=== PATIENT | male | born 1985 | race Caucasian/White ===

== ENCOUNTER 2021-01-17 09:47 | Day surgery (SDC) | payer MEDICAID, SELFPAY ==
[2021-01-17 10:44] VITALS: BP 125/71; PULSE 86; RESP 18; TEMP 36.5; O2SAT 92; BMI 44.0
[2021-01-17 11:20] LABS: Coronavirus 19 IgG Antibody Positive (Negative); Coronavirus 19 IgM Antibody Negative (Negative)
--- NOTE | 2021-01-17 12:02 | P.PCN_ITS ---
[facility] Procedure Note Procedure Note:: Upper Endoscopy Procedure Report: Esophagogastroduodenoscopy with cold biopsies Endoscopost: Axel Leblanc II, MD Referring Physician: Fahad Warren MD Date of Procedure: January 17, 2021 Equipment: Olympus GIF 180 standard upper endoscope Sedation: MAC sedation Indications: Mr. Jensen is a 35-year-old gentleman with dyspepsia. He reports epigastric abdominal pain and discomfort with nausea and occasional vomiting/regurgitation. He does report some bloating and mild belching. He reports no reflux or dysphagia. He has occasional globus sensation. He also has some mild chronic constipation. This is his first upper endoscopy. Procedure: Prior to the procedure, a history and physical exam was performed, and patient's medications and allergies were reviewed. The risks, benefits and alternatives of the sedation and procedure were discussed with the patient. All questions were answered and informed consent was obtained. The patient was brought to the procedure room. Patient identification and proposed procedure were verified by the physician and the nurse. The patient was placed in a left lateral decubitus position and the scope was passed under direct vision. Throughout the procedure, the patient's blood pressure, pulse, and oxygen saturations were monitored continuously. The upper GI endoscopy was accomplished without difficulty. The patient tolerated the procedure well. Findings: The scope was passed directly into the upper esophagus and advanced to the third portion of the duodenum. The post bulbar duodenum and duodenal bulb were normal with normal mucosa and conniventes. The scope was withdrawn through a normal duodenal bulb and pylorus into the stomach. There was linear reactive gastropathy of the antrum of the stomach. There was a moderate amount of green liquid that was very dark and somewhat bile colored but also darker (the patient did have coffee this morning). There is also some chronic gastritis. Upon retroflexion there was no significant hiatal hernia. 2 biopsies were taken in the antrum and along the lesser curvature for histology to rule out gastritis and/or H pylori. The scope was then withdrawn into the esophagus. There was a serrated Z-line with a single tongue of salmon-colored mucosa that was biopsied to rule out short segment Rowley's esophagus. There was no evidence of reflux esophagitis or Schatzki's ring. There did appear to be very faint grade 0?1 esophageal varices. The remainder of the esophageal mucosa was normal. Impression: 1. Nonerosive GERD with mild esophageal dysmotility 2. Linear reactive gastropathy (prepyloric antrum) with some chronic gastritis (type A gastritis of the body/fundus)?rule out H. pylori Plan: I will follow-up the biopsies to rule out H. pylori. 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 We will discuss diet and treatment options.
[2021-01-17 12:04] VITALS: BP 149/99; PULSE 98; RESP 20; TEMP 36.5; O2SAT 96
[2021-01-17 12:14] VITALS: BP 147/80; PULSE 79; RESP 20; O2SAT 96
[2021-01-17 12:24] VITALS: BP 147/84; PULSE 77; RESP 20; O2SAT 98
[2021-01-17 12:34] VITALS: BP 159/95; PULSE 75; RESP 20; O2SAT 98
[2021-01-17 12:56] VITALS: BP 135/81; PULSE 64; RESP 20; O2SAT 97
--- NOTE | 2021-01-17 14:52 | SUR.PHASEII ---
1255- @ . No new orders received. Pt up to bathroom. Voided without difficulty. Very eager to go home. Stable.
--- NOTE | 2021-01-17 15:58 | HMH.ANESCL ---
[facility] Anesthesia Checklist - Patient Identification Patient Identification: Arm Band, Verbal (Name & ) - Structural Data Admitted From: Home Planned Operative Procedure/s: egd Consent for Planned Operative Procedure(s) Verified: Yes Verified Documents: Surgical Consent - Anesthesia Plan Anesthesia Risk discussed: Yes Anesthesia Plan: Verified ASA Class: III Anesthesia Type: General [facility] History Medical History: Denies:: Cancer, Diabetes Mellitus Type 1, Diabetes Mellitus Type 2, Internal Pacemaker, MRSA, Seizures *Have you ever received a pneumonia vaccine?: No *Have you received a flu vaccine this season?: Yes Anesthesia experience/problems:: none Other Surgeries: Yes: No Previous Surgery. No: Pacemaker Amputation: No - *Social History Last grade of school completed: 7th or 8th Smoking Status: Current every day smoker Tobacco Type: cigarettes # Packs/Day (cigarettes): 1 Alcohol Intake: former Substance Use Type: marijuana *Occupational Status:: unemployed Housing: assisted living facility *Travel in the last 8 weeks: None Family Hx:: Unable to obtain
== END 2021-01-17 12:56 | disposition home or self-care (01) ==
LOC: OUTP 09:52
PROVIDERS: PCP Emergency Medicine; Visit Provider Internal Medicine Gastroenterology
PROC: 0DJ08ZZ Inspection of Upper Intestinal Tract, Via Natural or Artificial Opening Endoscopic (ICD-10-PCS; CPT 43235; principal; 2021-01-17 11:30)
DX: K21.9 Gastro-esophageal reflux disease without esophagitis; K22.4 Dyskinesia of esophagus; K31.9 Disease of stomach and duodenum, unspecified; K29.60 Other gastritis without bleeding; Z72.0 Tobacco use; F12.90 Cannabis use, unspecified, uncomplicated; Z79.899 Other long term (current) drug therapy
CPT/HCPCS: 43239; 36415; 86328

== ENCOUNTER 2021-06-10 20:39 | Emergency (ER) | payer MEDICAID, SELFPAY ==
[2021-06-10 20:19] VITALS: BP 126/73; PULSE 90; RESP 18; TEMP 36.9; O2SAT 99; BMI 35.2
--- NOTE | 2021-06-10 20:32 | CT_ITS ---
PROCEDURE INFORMATION: Exam: CT Thoracic Spine Without Contrast Exam date and time: 06/10/2021 8:32 PM Age: 36 years old Clinical indication: Pain in thoracic spine TECHNIQUE: Imaging protocol: Computed tomography images of the thoracic spine without contrast. Radiation optimization: All CT scans at this facility use at least one of these dose optimization techniques: automated exposure control; mA and/or kV adjustment per patient size (includes targeted exams where dose is matched to clinical indication); or iterative reconstruction. COMPARISON: No relevant prior studies available. FINDINGS: Vertebrae: Subtle superior endplate irregularity at T3. Mild degenerative changes. Soft tissues: Unremarkable. IMPRESSION: Subtle superior endplate irregularity at T3 without associated soft tissue abnormality which may be chronic however correlation with point tenderness is recommended.
--- NOTE | 2021-06-10 20:32 | CT_ITS ---
PROCEDURE INFORMATION: Exam: CT Lumbar Spine Without Contrast Exam date and time: 06/10/2021 8:32 PM Age: 36 years old Clinical indication: Low back pain TECHNIQUE: Imaging protocol: Computed tomography images of the lumbar spine without contrast. Radiation optimization: All CT scans at this facility use at least one of these dose optimization techniques: automated exposure control; mA and/or kV adjustment per patient size (includes targeted exams where dose is matched to clinical indication); or iterative reconstruction. COMPARISON: No relevant prior studies available. FINDINGS: Vertebrae: L4 demonstrates heterogeneous marrow and mild height loss with endplate measuring 22 mm in height compared to 29 mm at the adjacent level. Discs/Spinal canal/Neural foramina: Spondylosis with large disc osteophyte complex narrowing the spinal canal at L5-S1. Soft tissues: Unremarkable. IMPRESSION: 1. L4 demonstrates heterogeneous marrow and mild height loss with endplate measuring 22 mm in height compared to 29 mm at the adjacent level. Findings appear chronic however correlation with point tenderness is recommended. Superimposed infection cannot be excluded. 2. Spondylosis with large disc osteophyte complex narrowing the spinal canal at L5-S1.
--- NOTE | 2021-06-10 20:33 | PC.NURSE ---
pt stated he had taken a drink of vodka so you might find alcohol in my system
--- NOTE | 2021-06-10 20:34 | CT_ITS ---
PROCEDURE INFORMATION: Exam: CT Cervical Spine Without Contrast Exam date and time: 06/10/2021 8:34 PM Age: 36 years old Clinical indication: Neck pain TECHNIQUE: Imaging protocol: Computed tomography images of the cervical spine without contrast. Radiation optimization: All CT scans at this facility use at least one of these dose optimization techniques: automated exposure control; mA and/or kV adjustment per patient size (includes targeted exams where dose is matched to clinical indication); or iterative reconstruction. COMPARISON: CT THORACIC SPINE WO CON 06/10/2021 9:08 PM FINDINGS: Bones/joints: Degenerative changes of the spine. Subtle superior endplate irregularity at T3. No cervical fracture. Sinuses: Mild mucosal thickening of the paranasal sinuses. Auditory system: Debris within bilateral external auditory canals. Dental: Artifact associated with dental fillings. Lungs: Lung apices are normal. Soft tissues: No soft tissue swelling. IMPRESSION: No acute cervical abnormality.
--- NOTE | 2021-06-10 20:36 | HMH.EDBACK ---
ED Disposition Clinical Impression: Lumbar radiculopathy Disposition: Home, Self-Care Condition on Discharge: Good Instructions: DI for Back Pain With Sciatica Additional Instructions: see pcp for follow up - Critical Care Critical Care Time: No Attestation: On , the high probability of a clinically significant, sudden or life threatening deterioration of the following system(s) required my full and direct attention, intervention and personal management. The time I documented below is in addition to time spent performing reported procedures but includes the following listed in this critical care notation. Medical Decision Making - Medical Records Medical records reviewed: Yes: I reviewed the patient's medical records. - [place] Inquiry Pt receiving controlled substance: No Vital Signs: 06/10/21 20:19 Temperature 98.4 F Temperature Source Oral Pulse Rate [Left Radial] 90 Respiratory Rate 18 Blood Pressure [Right Arm] 126/73 Blood Pressure Mean [Right Arm] 90 Blood Pressure Source [Right Arm] Automatic Cuff Blood Pressure Position [Right Arm] Supine 02 Sat by Pulse Oximetry 99 Oxygen Delivery Method Room Air - Lab Data Lab results reviewed: Yes: I reviewed the patient's lab results. Lab Results 06/10/21 20:30: WBC 9.2, RBC 5.74, Hgb 16.4, Hct 47.6, MCV 82.9, MCH 28.5, MCHC 34.4, RDW 13.8, Plt Count 173, MPV 8.2, Neut % (Auto) 50.7, Lymph % (Auto) 40.6, [place] % (Auto) 4.9, Eos % (Auto) 2.0, Baso % (Auto) 1.9, Neut # (Auto) 4.6, Lymph # (Auto) 3.7, [place] # (Auto) 0.5, Eos # (Auto) 0.2, Baso # (Auto) 0.2, ESR 1 06/10/21 20:30: Sodium 140, Potassium 3.9, Chloride 106, Carbon Dioxide 25, Anion Gap 12.9, BUN 5 L, Creatinine 0.70, Estimated Creat Clear 243, Estimated GFR 128, Est GFR ( Amer) 154, Glucose 88, Calcium 8.9, C-Reactive Protein 6.6 H, Procalcitonin 0.063 06/10/21 20:30: Plasma/Serum Alcohol < 10 06/10/21 20:54: Urine Color Yellow, Urine Appearance Clear, Urine pH 7.5, Ur Specific [place] 1.010, Urine Protein Negative, Urine Glucose (UA) Negative, Urine Ketones Negative, Urine Blood Negative, Urine Nitrate Negative, Urine Bilirubin Negative, Urine Urobilinogen 0.2, Ur Leukocyte Esterase Negative, Urine RBC None, Urine WBC Occasional, Ur Squamous Epith Cells Occasional, Urine Bacteria Trace 06/10/21 20:54: Urine Opiates Screen Negative, Urine Methadone Screen Negative, Ur Barbituates Screen Negative, Ur Phencyclidine Scrn Negative, Ur Amphetamines Screen Negative, U Benzodiazepines Scrn Negative, Urine Cocaine Screen Negative, U Marijuana (THC) Screen Positive H Result diagrams: 06/10/21 20:30 06/10/21 20:30 Orders (Tests/Meds): ED MEDICATIONS Generic Name Dose Route Start Last Admin Trade Name Freq PRN Reason Stop Dose Admin Sodium Chloride 1,000 mls @ 999 mls/hr 06/10/21 20:45 06/10/21 20:48 Sod Chlor 0.9% 1000ml Bag IV 06/10/21 21:45 999 mls/hr .Q1H1M YOBANY Administration Discontinued Medications Generic Name Dose Route Start Last Admin Trade Name Freq PRN Reason Stop Dose Admin Ketorolac Tromethamine 30 mg 06/10/21 20:35 06/10/21 20:47 Ketorolac 30mg/Ml Vial IV 06/10/21 20:36 30 mg ONCE ONE Administration - CT Data CT Scan: C-Spine, T-Spine, L-Spine Time Received: 22:[address] Reviewed: Yes: I have viewed the radiologist's interpretation Preliminary Findings: No Fracture Seen Medical Decision Narrative: acute excerbation of back pain Back Pain HPI - General Chief Complaint: Back Pain/Injury Stated Complaint: weak knees Time Seen by Provider: 06/10/21 20:36 Mode of Arrival: EMS Source of Information: Patient, EMS, Medical Record Limitations: No Limitations Description of Symptoms (Recalled from ER Triage Doc. by RN): Pt reports walking down the sidewalk and having a sudden pain in his lower back. Pt says he walked about 20 more steps and i just had to lay down. Pt denies injury prior to event. He does report chronic back pain. He denies numbne
[2021-06-10 20:38] LABS: Basophils # 0.2 K/mm3 (0-0.2); Basophils % 1.9 % (0.1-2.0); Eosinophils # 0.2 K/mm3 (0.0-0.4); Hematocrit 47.6 % (42.0-52.0); Hemoglobin 16.4 g/dL (14.1-18.0); Lymphocytes # 3.7 K/mm3 (0.7-4.5); Lymphocytes % 40.6 % (10-50); Mean Corpuscular HGB Conc 34.4 g/dL (31.8-35.4); Mean Corpuscular Hemoglobin 28.5 pg (27.0-31.2); Mean Corpuscular Volume 82.9 fl (80-94); Mean Platelet Volume 8.2 fl (7.4-10.4); Monocytes # 0.5 K/mm3 (0.1-1.0); Monocytes % 4.9 % (1.7-9.3); Neutrophils # 4.6 K/mm3 (1.8-7.8); Neutrophils % 50.7 % (37.0-80.0); Platelet Count 173 K/mm3 (142-424); Red Blood Count 5.74 M/mm3 (4.60-6.20); Red Cell Distribution Width 13.8 % (11.5-17.5); White Blood Count 9.2 K/mm3 (4.8-10.8)
[2021-06-10 20:46] LABS: Anion Gap 12.9 mEq/L (5-15); Blood Urea Nitrogen 5 mg/dl (9-20); Calcium 8.9 mg/dl (8.4-10.2); Carbon Dioxide 25 mmol/L (22.0-30.0); Chloride 106 mmol/L (98-107); Creatinine Clearance Estimated 243 mL/min (50-200); Estimated Glomerular Filt Rate 128 ml/min (>60); GFR (African American) 154 ML/MIN (>60); Glucose 88 mg/dl (74-100); Potassium 3.9 mmoL/L (3.5-5.1); Sodium 140 mmol/L (136-145)
[2021-06-10 20:50] LABS: Ethyl Alcohol < 10 mg/dl (0-10)
[2021-06-10 20:51] LABS: C-Reactive Protein 6.6 mg/L (0-4)
--- NOTE | 2021-06-10 20:58 | PC.NURSE ---
Pt ambulated independently to bathroom and back.
[2021-06-10 21:02] LABS: Microscopic, Urine URINE MICROSCOPIC (MICROSCOPIC)
[2021-06-10 21:04] LABS: Procalcitonin 0.063 ng/mL (0.0-2.0)
[2021-06-10 21:08] LABS: Appearance,Urine CLEAR (Clear); Bilirubin,Urine Negative (Negative); Blood, Urine Negative (Negative); Color,Urine YELLOW (Yellow); Glucose,Urine (UA) Negative (Negative); Ketones,Urine Negative (Negative); Leukocyte Esterase,Urine Negative (Negative); Nitrate,Urine Negative (Negative); PH,Urine 7.5 (5.0-8.5); Protein,Urine Negative (Negative); Urobilinogen,Urine 0.2 EU/dl (0.2)
[2021-06-10 21:19] LABS: Barbiturates Screen,Urine Negative ng/ml (<200); Benzodiazepines Screen,Urine Negative ng/ml (<200)
[2021-06-10 21:20] LABS: Amphetamine/Metha Screen,Urine Negative ng/ml (<1000); Cannabinoid Screen,Urine Positive ng/ml (<50)
[2021-06-10 21:21] LABS: Cocaine Screen,Urine Negative ng/ml (<300)
[2021-06-10 21:22] LABS: Methadone Screen,Urine Negative ng/ml (<300)
[2021-06-10 21:23] LABS: Opiate Screen,Urine Negative ng/ml (<300); Phencyclidine Screen,Urine Negative ng/ml (<25)
[2021-06-10 21:35] LABS: Erythrocyte Sedimentation Rate 1 mm/hr (0-15)
[2021-06-10 21:41] LABS: Bacteria,Urine Trace /lpf; Squamous Epithelial Cell,Urine Occasional #/hpf (0-5); WBC,Urine Occasional #/hpf (0-3)
[2021-06-10 22:43] VITALS: BP 124/78; PULSE 84; RESP 16; TEMP 36.8; O2SAT 98
== END 2021-06-10 22:53 | disposition home or self-care (01) ==
PROVIDERS: Emergency Provider Emergency Medicine; PCP Emergency Medicine
DX: M54.16 Radiculopathy, lumbar region (principal); F17.210 Nicotine dependence, cigarettes, uncomplicated
CPT/HCPCS: 72125; 72128; 72131; 80048; 80305; 81001; 84145; 85025; 85651; 86140; 96365; 96375; 99283

== ENCOUNTER 2021-08-10 18:34 | Emergency (ER) | payer MEDICAID, SELFPAY ==
[2021-08-10 18:35] VITALS: BP 100/62; PULSE 65; RESP 18; TEMP 36.9; O2SAT 97; BMI 42.0
[2021-08-10 19:21] VITALS: BMI 42.0
--- NOTE | 2021-08-10 19:23 | CT_ITS ---
PROCEDURE INFORMATION: Exam: CT Abdomen And Pelvis Without And With Contrast Exam date and time: 08/10/2021 7:23 PM Age: 36 years old Clinical indication: Abdominal pain; Localized; Right lower quadrant (rlq); Additional info: Rlq pain TECHNIQUE: Imaging protocol: Computed tomography of the abdomen and pelvis without and with contrast. Radiation optimization: All CT scans at this facility use at least one of these dose optimization techniques: automated exposure control; mA and/or kV adjustment per patient size (includes targeted exams where dose is matched to clinical indication); or iterative reconstruction. Contrast material: ISOVUE 370; Contrast volume: 75 ml; Contrast route: INTRAVENOUS (IV); COMPARISON: CT LUMBAR SPINE WO CON 06/10/2021 9:11 PM FINDINGS: Lungs: No mass/infiltrate at either lung base. No pleural effusion. 6 mm calcified granuloma subpleural position left lower lobe. Liver: Hepatomegaly, normal attenuation. No intrahepatic biliary dilitation. Gallbladder and bile ducts: 2.5 mm peripherally calcified gallstone present within the gallbladder. The gallbladder wall does not appear thickened. No evidence of extrahepatic biliary dilatation. Pancreas: Normal. No ductal dilation. Spleen: Normal. No splenomegaly. Adrenal glands: Normal. No mass. Kidneys and ureters: Normal. No hydronephrosis. Stomach and bowel: Unremarkable. No obstruction. No mucosal thickening. Small bowel mesentery is normal. Appendix: Unremarkable. Intraperitoneal space: Unremarkable. No free air. No significant fluid collection. Vasculature: Unremarkable. No abdominal aortic aneurysm. Lymph nodes: Unremarkable. No enlarged lymph nodes. Urinary bladder: Unremarkable as visualized. Reproductive: Unremarkable as visualized. Bones/joints: Age-indeterminate superior endplate compression deformity of L4. There are degenerative changes noted within the lower lumbar spine. Soft tissues: Unremarkable. IMPRESSION: 1. Cholelithiasis. 2. Hepatomegaly. 3. Age-indeterminate superior endplate compression deformity of L4. 4. No evidence of acute process.
[2021-08-10 19:27] LABS: Microscopic, Urine URINE MICROSCOPIC (MICROSCOPIC)
[2021-08-10 19:32] LABS: Basophils # 0.1 K/mm3 (0-0.2); Basophils % 0.9 % (0.1-2.0); Eosinophils # 0.2 K/mm3 (0.0-0.4); Eosinophils % 2.5 % (0.1-12.0); Hematocrit 51.1 % (42.0-52.0); Hemoglobin 17.3 g/dL (14.1-18.0); Lymphocytes # 4.2 K/mm3 (0.7-4.5); Lymphocytes % 44.7 % (10-50); Mean Corpuscular HGB Conc 33.9 g/dL (31.8-35.4); Mean Corpuscular Hemoglobin 29.8 pg (27.0-31.2); Monocytes # 0.4 K/mm3 (0.1-1.0); Monocytes % 4.5 % (1.7-9.3); Neutrophils # 4.4 K/mm3 (1.8-7.8); Neutrophils % 47.4 % (37.0-80.0); Platelet Count 181 K/mm3 (142-424); Red Blood Count 5.81 M/mm3 (4.60-6.20); Red Cell Distribution Width 12.8 % (11.5-17.5); White Blood Count 9.4 K/mm3 (4.8-10.8)
[2021-08-10 19:36] LABS: Chloride 107 mmol/L (98-107); Sodium 140 mmol/L (136-145)
[2021-08-10 19:38] LABS: Blood Urea Nitrogen 6 mg/dl (9-20); Creatinine Clearance Estimated 160 mL/min (50-200); Estimated Glomerular Filt Rate 128 ml/min (>60); GFR (African American) 154 ML/MIN (>60)
[2021-08-10 19:39] LABS: Alanine Aminotransferase 31 U/L (12-78); Albumin Level 3.9 g/dl (3.5-5.0); Albumin/Globulin Ratio 1.2 (1.1-1.8); Alkaline Phosphatase 89 U/L (38-126); Appearance,Urine SL CLOUDY (Clear); Aspartate Amino Transferase 32 U/L (17-59); Bilirubin,Total 0.1 mg/dl (0.2-1.3); Bilirubin,Urine Negative (Negative); Blood, Urine Negative (Negative); Calcium 8.8 mg/dl (8.4-10.2); Carbon Dioxide 24 mmol/L (22.0-30.0); Color,Urine YELLOW (Yellow); Globulin 3.2 g/dL (1.3-3.2); Glucose 144 mg/dl (74-100); Glucose,Urine (UA) Negative (Negative); Ketones,Urine Negative (Negative); Leukocyte Esterase,Urine Negative (Negative); Nitrate,Urine Negative (Negative); Protein,Urine Negative (Negative); Specific Gravity, Urine 1.015 (1.005-1.030); Total Protein,Serum 7.1 g/dl (6.3-8.2); Urobilinogen,Urine 0.2 EU/dl (0.2)
[2021-08-10 19:48] LABS: RBC,Urine Occasional #/hpf (0-3); WBC,Urine Occasional #/hpf (0-3)
--- NOTE | 2021-08-10 21:26 | HMH.EDGENADL ---
ED Disposition Clinical Impression: Abdominal pain Qualifiers: Abdominal location: unspecified location Qualified Code(s): R10.9 - Unspecified abdominal pain Otalgia Qualifiers: Laterality: left Qualified Code(s): H92.02 - Otalgia, left ear Disposition: Home, Self-Care Condition on Discharge: Good Instructions: DI for Abdominal Pain-Adult Additional Instructions: Additional instructions for ABDOMINAL PAIN: See your physician as soon as possible for further evaluation. Return immediately if worsening abdominal pain, vomiting, shortness of breath, fever, vomiting of blood or abdominal distention. Referrals: Fahad Warren MD [Primary Care Provider] - - Critical Care Critical Care Time: No Attestation: On 08/10/21, the high probability of a clinically significant, sudden or life threatening deterioration of the following system(s) required my full and direct attention, intervention and personal management. The time I documented below is in addition to time spent performing reported procedures but includes the following listed in this critical care notation. Medical Decision Making - [place] Inquiry Pt receiving controlled substance: No Vital Signs: 08/10/21 18:35 Temperature 98.4 F Temperature Source Oral Pulse Rate [Right] 65 Respiratory Rate 18 Blood Pressure [Right Arm] 100/62 L Blood Pressure Mean [Right Arm] 74 02 Sat by Pulse Oximetry 97 - Lab Data Lab Results 08/10/21 19:15: Urine Color Yellow, Urine Appearance Sl cloudy, Urine pH 6.0, Ur Specific [place] 1.015, Urine Protein Negative, Urine Glucose (UA) Negative, Urine Ketones Negative, Urine Blood Negative, Urine Nitrate Negative, Urine Bilirubin Negative, Urine Urobilinogen 0.2, Ur Leukocyte Esterase Negative, Urine RBC Occasional, Urine WBC Occasional, Ur Squamous Epith Cells None, Urine Bacteria None 08/10/21 19:15: WBC 9.4, RBC 5.81, Hgb 17.3, Hct 51.1, MCV 88.0, MCH 29.8, MCHC 33.9, RDW 12.8, Plt Count 181, MPV 8.0, Neut % (Auto) 47.4, Lymph % (Auto) 44.7, [place] % (Auto) 4.5, Eos % (Auto) 2.5, Baso % (Auto) 0.9, Neut # (Auto) 4.4, Lymph # (Auto) 4.2, [place] # (Auto) 0.4, Eos # (Auto) 0.2, Baso # (Auto) 0.1 08/10/21 19:15: Sodium 140, Potassium 4.0, Chloride 107, Carbon Dioxide 24, Anion Gap 13.0, BUN 6 L, Creatinine 0.70, Estimated Creat Clear 160, Estimated GFR 128, Est GFR ( Amer) 154, Glucose 144 H, Calcium 8.8, Total Bilirubin 0.1 L, AST 32, ALT 31, Alkaline Phosphatase 89, Total Protein 7.1, Albumin 3.9, Globulin 3.2, Albumin/Globulin Ratio 1.2 Result diagrams: 08/10/21 19:15 08/10/21 19:15 Orders (Tests/Meds): ED MEDICATIONS Generic Name Dose Route Start Last Admin Trade Name Freq PRN Reason Stop Dose Admin Sodium Chloride 1,000 mls @ 999 mls/hr 08/10/21 19:30 08/10/21 19:30 Sod Chlor 0.9% 1000ml Bag IV 08/10/21 20:30 999 mls/hr .Q1H1M YOBANY Administration Discontinued Medications Generic Name Dose Route Start Last Admin Trade Name Freq PRN Reason Stop Dose Admin Iopamidol 75 ml 08/10/21 20:41 08/10/21 20:42 Iopamidol-370 (76%);100ml Bottle IV 08/10/21 20:42 75 ml ONCE ONE Administration Ketorolac Tromethamine 30 mg 08/10/21 19:22 08/10/21 19:31 Ketorolac 30mg/Ml Vial IV 08/10/21 19:23 30 mg ONCE ONE Administration Ondansetron HCl 4 mg 08/10/21 19:22 08/10/21 19:31 Ondansetron 4mg/2ml Vial IV 08/10/21 19:23 4 mg ONCE ONE Administration Sodium Chloride 10 ml 08/10/21 20:41 08/10/21 20:42 Sodium Chloride 0.9% 10ml Syr (Rad Only) IV 08/10/21 20:42 10 ml ONCE ONE Administration - CT Data CT Scan: Abdomen, Pelvis Time Received: 21:[address] Reviewed: Yes: I have viewed the radiologist's interpretation Findings Narrative: PROCEDURE INFORMATION: Exam: CT Abdomen And Pelvis Without And With Contrast Exam date and time: 08/10/2021 7:23 PM Age: 36 years old Clinical indication: Abdominal pain; Localized; Right lower quadrant (rlq); Additional info
[2021-08-10 21:53] VITALS: BP 110/72; PULSE 65; RESP 18; TEMP 36.9; O2SAT 97
== END 2021-08-10 21:57 | disposition home or self-care (01) ==
PROVIDERS: Emergency Medicine; Emergency Provider Emergency Medicine; PCP Emergency Medicine
DX: R10.31 Right lower quadrant pain (principal); H92.02 Otalgia, left ear; F17.210 Nicotine dependence, cigarettes, uncomplicated
CPT/HCPCS: 74178; 80053; 81001; 85025; 96365; 96375; 99283; J2405; Q9967

== ENCOUNTER → 2021-12-23 10:10 | Outpatient (CLI) | payer MEDICAID, SELFPAY ==
--- NOTE | 2021-12-23 10:13 | MR_ITS ---
FINAL REPORT CLINICAL HISTORY: BACK PAIN, OLD INJUR 10 YEARS AGO FINDINGS: Multiplanar MR imaging of the lumbar spine was performed without contrast. On the sagittal T2-weighted images, disc degeneration is seen from L3-4 through L5-S1. There are endplate changes at L5-S1. There is a moderate, chronic L4 compression fracture with several Schmorl's nodes. There is no evidence of acute fracture. The vertebral alignment is normal. The conus has an unremarkable appearance. L1-2: There is no significant canal stenosis or neural foraminal narrowing. L2-3: There is no significant canal stenosis or neural foraminal narrowing. L3-4: An annular bulge is present. There is a small central disc protrusion with mild left neural foraminal narrowing. L4-5: An annular bulge is present with moderate bilateral neural foraminal narrowing. L5-S1: An annular bulge is present. Facet arthropathy and osteophytes are present. There is a central inferiorly extruded disc which indents the thecal sac. There is bilateral S1 nerve root compression and severe bilateral neural foraminal narrowing. There is mild central canal stenosis with an AP diameter of the thecal sac of 8 mm. IMPRESSION: Central inferiorly extruded disc at L5-S1 with bilateral S1 nerve root compression, severe bilateral neural foraminal narrowing and mild central canal stenosis. Multilevel degenerative disc disease and spondylosis. Reviewed, Interpreted and Dictated by Souleymane Bell III, MD Transcribed by Demetrice Ryan Authenticated by Souleymane Bell III, MD on 12/23/2021 01:42:21 PM [facility]
== END ==
PROVIDERS: PCP Emergency Medicine; Visit Provider Emergency Medicine
DX: M54.50 Low back pain, unspecified (principal)
CPT/HCPCS: 72148; 76376

== ENCOUNTER 2022-05-30 10:38 | Emergency (ER) | payer MEDICAID, SELFPAY ==
[2022-05-30 10:39] VITALS: BP 127/74; PULSE 77; RESP 16; TEMP 37.2; O2SAT 97; BMI 28.3
--- NOTE | 2022-05-30 10:43 | PC.NURSE ---
MARIANN JARQUIN and AZUL Martinez at
--- NOTE | 2022-05-30 10:49 | HMH.EDGENADL ---
ED Disposition Clinical Impression: Rectal pain Disposition: Home, Self-Care Condition on Discharge: Good Additional Instructions: Use suppositories as needed for discomfort and utilize warm soaks as well. Follow up with your family physician as needed. Referrals: Fahad Warren MD [Primary Care Provider] - Time of Disposition: 10:55 - Critical Care Critical Care Time: No Attestation: On , the high probability of a clinically significant, sudden or life threatening deterioration of the following system(s) required my full and direct attention, intervention and personal management. The time I documented below is in addition to time spent performing reported procedures but includes the following listed in this critical care notation. Medical Decision Making - Medical Records Medical records reviewed: Yes: I reviewed the patient's medical records. - [place] Inquiry Pt receiving controlled substance: No - Lab Data Lab results reviewed: Yes: I reviewed the patient's lab results. Orders (Tests/Meds): ED MEDICATIONS Discontinued Medications Generic Name Dose Route Start Last Admin Trade Name Freq PRN Reason Stop Dose Admin Hydrocortisone Acetate 30 mg 05/30/22 10:46 Hydrocortisone 30mg Suppository RC 05/30/22 10:47 ONCE ONE ORDERS Category Date Time Status Occult Blood,Stool Stat Lab 05/30/22 10:45 Received General Adult HPI - General Time Seen by Provider: 05/30/22 10:55 Mode of Arrival: EMS Source of Information: Patient Limitations: No Limitations - History of Present Illness HPI narrative: 37 yo/M, denies any history of rectal bleeding, pain, abscess, trauma or other issues, presents with 1 day rectal pain after large bowel movement. no known large hemorrhoids, states had pain with BM x2, and small amount of bright red blood when wiping on second episode. Reports sharp, stinging pain now while at rest. Denies diarrhea, abdominal pain, nausea, vomiting, any bleeding disorders or other relevant issues. No treatments prior to this visit. - Related Data Home Medications Medication Instructions Recorded Confirmed Acetylcysteine [Nac] 600 mg PO BID 01/09/21 06/10/21 Cholecalciferol (Vitamin D3) 50,000 unit PO WEEKLY 01/09/21 06/10/21 [Vitamin D3 50,000 unit Cap] Duloxetine HCl 60 mg PO DAILY 01/09/21 06/10/21 Famotidine [Pepcid] 40 mg PO BID 01/09/21 06/10/21 Levothyroxine Sodium 25 mcg PO DAILY 01/09/21 06/10/21 [Levothyroxine] Loratadine [Claritin] 10 mg PO DAILY 01/09/21 06/10/21 Loxapine [Adasuve] 10 mg IH DAILY 01/09/21 06/10/21 Lubiprostone [Amitiza] 24 mcg PO DAILY 01/09/21 06/10/21 Melatonin 3 mg PO HS 01/09/21 06/10/21 Metoprolol Succinate [Metoprolol 25 mg PO BID 01/09/21 06/10/21 Succinate 25mg Tablet*] Multivitamin [Multi-Vitamin Plain] 1 each PO DAILY 01/09/21 06/10/21 Omeprazole [Omeprazole 20mg 20 mg PO BID 01/09/21 06/10/21 Capsule] Pravastatin Sodium [Pravachol 40mg 20 mg PO HS 01/09/21 06/10/21 Tablet] hydrOXYzine pamoate [Vistaril 25mg 25 mg PO Q8H PRN 01/09/21 06/10/21 capsule] Docusate Sodium 100 mg PO DAILY 06/10/21 06/10/21 OLANZapine [Zyprexa] 20 mg PO DAILY 06/10/21 06/10/21 haloperidoL [Haldol 5mg tablet] 5 mg PO BID 06/10/21 06/10/21 Previous Rx's Medication Instructions Recorded lorazepam 1 mg tablet 1 mg PO TID #90 tab 05/27/22 Hydrocortisone [Anusol-Hc] 30 gm TP BID #1 gm 05/30/22 Allergies Allergy/AdvReac Type Severity Reaction Status Date / Time No Known Allergies Allergy Verified 01/09/21 11:54 [facility] History - Hepatitis A Screen Attestation statement:: This patient has been screened for Hepatitis A risk factors. Medical History: Denies:: Cancer, Diabetes Mellitus Type 1, Diabetes Mellitus Type 2, Internal Pacemaker, MRSA, Seizures Other Surgeries: Yes: No Previous Surgery. No: Pacemaker Amputation: No - Social History Smoking Status: Current every day smoker Tobacco Type:
[2022-05-30 10:53] LABS: Occult Blood,Stool Negative (Negative)
[2022-05-30 11:00] VITALS: BP 145/81; PULSE 97; O2SAT 97
--- NOTE | 2022-05-30 11:19 | PC.NURSE ---
notified [facility] staff pt ready for discharge
[2022-05-30 11:40] VITALS: BP 145/81; PULSE 97; RESP 16; TEMP 37.2; O2SAT 97
== END 2022-05-30 11:40 | disposition home or self-care (01) ==
PROVIDERS: Emergency Provider Emergency Medicine; PCP Emergency Medicine
DX: K62.89 Other specified diseases of anus and rectum (principal); Z72.0 Tobacco use; F12.90 Cannabis use, unspecified, uncomplicated
CPT/HCPCS: 82272; 99212; G0328; G0463

== ENCOUNTER 2022-07-06 20:15 | Emergency (ER) | payer MEDICAID, SELFPAY ==
[2022-07-06 20:16] VITALS: BP 148/88; PULSE 65; RESP 16; TEMP 37; O2SAT 98; BMI 40.6
--- NOTE | 2022-07-06 21:10 | HMH.EDPSYCH ---
ED Disposition Clinical Impression: Acute psychosis, Chronic schizophrenia, Hypothyroidism (acquired), Tobacco use Obesity Qualifiers: Obesity type: due to excess calories Obesity classification: adult class 3 (BMI >= 40) Serious obesity comorbidity presence: with serious comorbidity Body mass index: BMI 40.0-44.9 Qualified Code(s): E66.01 - Morbid (severe) obesity due to excess calories; Z68.41 - Body mass index [BMI] 40.0-44.9, adult Disposition: Xfer Psychiatric Hosp Condition on Discharge: Fair Instructions: DI for Psychosis Referrals: Provider,MD Mary [Primary Care Provider] - Fahad Warren MD [Emergency Provider] - - Critical Care Critical Care Time: No Attestation: On 07/06/22, the high probability of a clinically significant, sudden or life threatening deterioration of the following system(s) required my full and direct attention, intervention and personal management. The time I documented below is in addition to time spent performing reported procedures but includes the following listed in this critical care notation. Medical Decision Making - Medical Records Medical records reviewed: Yes: I reviewed the patient's medical records. - [place] Inquiry Pt receiving controlled substance: No Vital Signs: 07/06/22 20:16 Temperature 98.6 F Temperature Source Oral Pulse Rate [Left Radial] 65 Respiratory Rate 16 Blood Pressure [Right Arm] 148/88 H Blood Pressure Mean [Right Arm] 108 02 Sat by Pulse Oximetry 98 Oxygen Delivery Method Room Air - Lab Data Lab results reviewed: Yes: I reviewed the patient's lab results. Lab Results 07/06/22 20:54: WBC 8.3, RBC 5.20, Hgb 14.0 L, Hct 43.2, MCV 83.1, MCH 27.0, MCHC 32.4, RDW 13.4, Plt Count 229, MPV 8.0, Neut % (Auto) 43.0, Lymph % (Auto) 47.4, Elliott % (Auto) 6.0, Eos % (Auto) 2.1, Baso % (Auto) 1.5, Neut # (Auto) 3.6, Lymph # (Auto) 3.9, Elliott # (Auto) 0.5, Eos # (Auto) 0.2, Baso # (Auto) 0.1 07/06/22 20:54: Free T4 0.89 07/06/22 20:54: Plasma/Serum Alcohol < 10 07/06/22 20:55: Sodium 126 L, Potassium 4.0, Chloride 98, Carbon Dioxide 25, Anion Gap 7.0, BUN 6 L, Creatinine 0.60 L, Estimated Creat Clear 324 H, Estimated GFR 152, Est GFR ( Amer) 183, Glucose 109 H, Calcium 9.1, Total Bilirubin < 0.1 L, AST 24, ALT 23, Alkaline Phosphatase 103, Total Protein 6.8, Albumin 4.0, Globulin 2.8, Albumin/Globulin Ratio 1.4, TSH 1.59, Salicylates < 1.0 L, Acetaminophen < 10 L 07/06/22 20:55: SARS-CoV-2 (PCR) Detected A, Influenza A Untype (PCR) Not detected, Influenza Type B (PCR) Not detected 07/06/22 22:10: Urine Opiates Screen Negative, Urine Methadone Screen Negative, Ur Barbituates Screen Negative, Ur Phencyclidine Scrn Negative, Ur Amphetamines Screen Negative, U Benzodiazepines Scrn Negative, Urine Cocaine Screen Negative, U Marijuana (THC) Screen Negative 07/06/22 22:10: Urine Color Yellow, Urine Appearance Clear, Urine pH 6.0, Ur Specific [place] 1.010, Urine Protein Negative, Urine Glucose (UA) Negative, Urine Ketones Negative, Urine Blood Negative, Urine Nitrate Negative, Urine Bilirubin Negative, Urine Urobilinogen 1.0, Ur Leukocyte Esterase Negative, Urine RBC Occasional, Urine WBC None, Ur Squamous Epith Cells Occasional, Urine Bacteria None Result diagrams: 07/06/22 20:54 07/06/22 20:55 - CT Data CT Scan: Head Time Received: 22:[address] Reviewed: Yes: I have viewed the radiologist's interpretation Preliminary Findings: Normal/NAD Medical Decision Narrative: has stable exam and labs and need pschy eval for increased psychotic sx and needs psych eval Psych HPI - General Chief Complaint: Psychiatric Symptoms Stated Complaint: evaluation Time Seen by Provider: 07/06/22 20:35 Mode of Arrival: EMS Source of Information: Patient, EMS, Medical Record Limitations: No Limitations Description of Symptoms (Recalled from ER Triage Doc. by RN): pt reports that he has heard voices for a long time but he is tired of the ones that are telling him to kil
--- NOTE | 2022-07-06 21:11 | CT_ITS ---
PROCEDURE INFORMATION: Exam: CT Head Without Contrast Exam date and time: 07/06/22 09:14 PM Age: 37 years old Clinical indication: Injury or trauma; Other: Hit head; Blunt trauma (contusions or hematomas); Additional info: Hitting head TECHNIQUE: Imaging protocol: Computed tomography of the head without contrast. Radiation optimization: All CT scans at this facility use at least one of these dose optimization techniques: automated exposure control; mA and/or kV adjustment per patient size (includes targeted exams where dose is matched to clinical indication); or iterative reconstruction. COMPARISON: CT CERVICAL SPINE WO CON 06/10/21 09:18 PM FINDINGS: Brain: Normal. No hemorrhage. Unremarkable white matter. No mass effect. Cerebral ventricles: No ventriculomegaly. Paranasal sinuses: Visualized sinuses are unremarkable. No fluid levels. Mastoid air cells: Visualized mastoid air cells are well aerated. Bones/joints: Unremarkable. No acute fracture. Soft tissues: Unremarkable. IMPRESSION: No acute intracranial abnormality.
--- NOTE | 2022-07-06 21:14 | PC.NURSE ---
This RN called After-hours guardianship for consent to treat ([phone]), s/w Rocky Jeff, and she gave permission for initial treat and evaluation at ER for pt. She asked for a patient signed consent for the transport to [facility] since the patient wants to voluntarily go for treatment and evaluation. Asked to ax his consent to [phone], ATTENT Guardianship After- Hours.
--- NOTE | 2022-07-06 21:17 | PC.NURSE ---
patient to CT
[2022-07-06 21:27] LABS: Basophils # 0.1 K/mm3 (0-0.2); Basophils % 1.5 % (0.1-2.0); Eosinophils # 0.2 K/mm3 (0.0-0.4); Eosinophils % 2.1 % (0.1-12.0); Hematocrit 43.2 % (42.0-52.0); Lymphocytes # 3.9 K/mm3 (0.7-4.5); Lymphocytes % 47.4 % (10-50); Mean Corpuscular HGB Conc 32.4 g/dL (31.8-35.4); Mean Corpuscular Volume 83.1 fl (80-94); Monocytes # 0.5 K/mm3 (0.1-1.0); Neutrophils # 3.6 K/mm3 (1.8-7.8); Platelet Count 229 K/mm3 (142-424); Red Cell Distribution Width 13.4 % (11.5-17.5); White Blood Count 8.3 K/mm3 (4.8-10.8)
[2022-07-06 21:28] LABS: Influenza A, PCR Not Detected (NotDetected); Influenza B, PCR Not Detected (NotDetected)
[2022-07-06 21:35] LABS: Alanine Aminotransferase 23 U/L (12-78); Albumin/Globulin Ratio 1.4 (1.1-1.8); Alkaline Phosphatase 103 U/L (38-126); Aspartate Amino Transferase 24 U/L (17-59); Blood Urea Nitrogen 6 mg/dl (9-20); Calcium 9.1 mg/dl (8.4-10.2); Carbon Dioxide 25 mmol/L (22.0-30.0); Chloride 98 mmol/L (98-107); Creatinine Clearance Estimated 324 mL/min (50-200); Estimated Glomerular Filt Rate 152 ml/min (>60); GFR (African American) 183 ML/MIN (>60); Globulin 2.8 g/dL (1.3-3.2); Glucose 109 mg/dl (74-100); Sodium 126 mmol/L (136-145); Total Protein,Serum 6.8 g/dl (6.3-8.2)
--- NOTE | 2022-07-06 21:35 | PC.NURSE ---
Rocky Jeff called back from After-Hour guardianship office, stating after s/w colleague at office she states she no longer needs a patient consent form for the PD transfer, she IS giving consent for initial treatment & testing at [facility] and then PD transport to [facility]. She further states once pt arrives to [facility], they need to call for [facility] admission consent. updated on this.
[2022-07-06 21:37] LABS: Ethyl Alcohol < 10 mg/dl (0-10)
[2022-07-06 21:40] LABS: Bilirubin,Total < 0.1 mg/dl (0.2-1.3)
[2022-07-06 21:41] LABS: Acetaminophen < 10 ug/ml (10-30); Salicylate < 1.0 mg/dL (2.0-20.0)
[2022-07-06 21:52] LABS: Free T4 (Free Thyroxine) 0.89 ng/dl (0.78-2.19)
[2022-07-06 21:57] LABS: Coronavirus 19, PCR Detected (NotDetected)
[2022-07-06 22:05] LABS: Thyroid Stimulating Hormone 1.59 uIU/mL (0.465-4.68)
[2022-07-06 22:19] LABS: Appearance,Urine CLEAR (Clear); Bilirubin,Urine Negative (Negative); Blood, Urine Negative (Negative); Color,Urine YELLOW (Yellow); Glucose,Urine (UA) Negative (Negative); Ketones,Urine Negative (Negative); Leukocyte Esterase,Urine Negative (Negative); Microscopic, Urine URINE MICROSCOPIC (MICROSCOPIC); Nitrate,Urine Negative (Negative); Protein,Urine Negative (Negative)
[2022-07-06 22:32] LABS: Amphetamine/Metha Screen,Urine Negative ng/ml (<1000); Barbiturates Screen,Urine Negative ng/ml (<200); RBC,Urine Occasional #/hpf (0-3); Squamous Epithelial Cell,Urine Occasional #/hpf (0-5)
[2022-07-06 22:33] LABS: Benzodiazepines Screen,Urine Negative ng/ml (<200)
[2022-07-06 22:34] LABS: Cannabinoid Screen,Urine Negative ng/ml (<50); Cocaine Screen,Urine Negative ng/ml (<300)
[2022-07-06 22:35] LABS: Methadone Screen,Urine Negative ng/ml (<300); Opiate Screen,Urine Negative ng/ml (<300)
[2022-07-06 22:36] LABS: Phencyclidine Screen,Urine Negative ng/ml (<25)
--- NOTE | 2022-07-06 23:21 | PC.NURSE ---
dispatch notified of need for transport to [facility]
[2022-07-06 23:28] VITALS: BP 150/85; PULSE 68; RESP 20; TEMP 36.9; O2SAT 98
--- NOTE | 2022-07-06 23:29 | PC.NURSE ---
patient given soup, crackers and pepsi while he awaits transport to [facility]. No other needs at this time
--- NOTE | 2022-07-07 02:57 | PC.NURSE ---
[facility] notified that patient is ready to be transported back to facility, they are contacting [facility] to come pepper picker patient
== END 2022-07-07 00:05 ==
PROVIDERS: Emergency Provider Emergency Medicine
DX: F20.9 Schizophrenia, unspecified (principal); U07.1 COVID-19
CPT/HCPCS: 70450; 80053; 80305; 80329; 81001; 84439; 84443; 85025; 99285; C9803; U0003; U0005

== ENCOUNTER 2022-08-16 19:03 | Emergency (ER) | payer MEDICAID, SELFPAY ==
[2022-08-16 19:03] VITALS: BP 133/83; PULSE 82; RESP 16; TEMP 36.8; O2SAT 97; BMI 39.4
[2022-08-16 19:07] VITALS: BMI 39.4
--- NOTE | 2022-08-16 19:08 | CT_ITS ---
PROCEDURE INFORMATION: Exam: CT Head Without Contrast Exam date and time: 08/16/2022 7:09 PM Age: 37 years old Clinical indication: Syncope and collapse; Additional info: Fall TECHNIQUE: Imaging protocol: Computed tomography of the head without contrast. Radiation optimization: All CT scans at this facility use at least one of these dose optimization techniques: automated exposure control; mA and/or kV adjustment per patient size (includes targeted exams where dose is matched to clinical indication); or iterative reconstruction. COMPARISON: CT HEAD/BRAIN WO CON 07/06/2022 9:14 PM FINDINGS: Brain: Normal. No hemorrhage. Unremarkable white matter. No mass effect. Cerebral ventricles: No ventriculomegaly. Paranasal sinuses: Visualized sinuses are unremarkable. No fluid levels. Mastoid air cells: Visualized mastoid air cells are well aerated. Bones/joints: Unremarkable. No acute fracture. Soft tissues: Unremarkable. IMPRESSION: No acute intracranial abnormality.
--- NOTE | 2022-08-16 19:08 | CT_ITS ---
PROCEDURE INFORMATION: Exam: CT Cervical Spine Without Contrast Exam date and time: 08/16/2022 7:11 PM Age: 37 years old Clinical indication: Injury or trauma; Fall TECHNIQUE: Imaging protocol: Computed tomography of the cervical spine without contrast. Radiation optimization: All CT scans at this facility use at least one of these dose optimization techniques: automated exposure control; mA and/or kV adjustment per patient size (includes targeted exams where dose is matched to clinical indication); or iterative reconstruction. COMPARISON: CT CERVICAL SPINE WO CON 06/10/2021 9:18 PM FINDINGS: Bones/joints: No acute fracture. Normal alignment. No significant disc protrusion. No severe spinal canal stenosis. Lungs: Lung apices are normal. Soft tissues: Unremarkable. IMPRESSION: 1. No evidence of acute displaced cortical disruption or spondylolisthesis is identified on CT of cervical spine. 2. No evidence of central or foraminal stenosis.
--- NOTE | 2022-08-16 19:14 | PC.NURSE ---
ATTEMPTED TO PLACE C-COLLAR. PT REFUSES. RISKS AND BENEFITS EXPLAINED. PT CONTINUES TO REFUSE.
--- NOTE | 2022-08-16 19:16 | PC.NURSE ---
PT TO RADIOLOGY.
--- NOTE | 2022-08-16 20:27 | HMH.EDFALL ---
Discharge Plan Disposition Patient Disposition: Home, Self-Care Chief Complaint: Fall Prescriptions Prescriptions: No Action lorazepam 1 mg tablet 1 mg PO TID Qty: 90 5RF Rx Instructions: 1 tablet @ lunchtime & 2 tablets @ bedtime pravastatin 40 MG tablet 20 mg PO HS famotidine 40 MG tablet 40 mg PO BID melatonin 3 MG tablet 3 mg PO HS omeprazole 20 MG capsule,delayed release(DR/EC) 20 mg PO BID metoprolol succinate 25 MG tablet extended release 24 hr 25 mg PO BID hydroxyzine pamoate 25 MG capsule 25 mg PO Q8H PRN (Reason: mood) duloxetine 60 MG capsule,delayed release(DR/EC) 60 mg PO DAILY lubiprostone 24 MCG capsule 24 mcg PO DAILY cholecalciferol (vitamin D3) 1,250 MCG capsule 50,000 unit PO WEEKLY levothyroxine 25 MCG capsule 25 mcg PO DAILY loratadine 10 MG capsule 10 mg PO DAILY multivitamin with folic acid 1 EACH tablet 1 each PO DAILY loxapine 10 MG aerosol powdr breath activated 10 mg IH DAILY acetylcysteine 500 MG capsule 600 mg PO BID haloperidol 5 MG tablet 5 mg PO BID docusate sodium 100 MG capsule 100 mg PO DAILY olanzapine 20 MG tablet 20 mg PO DAILY hydrocortisone 30 GM cream with perineal applicator 30 gm TP BID Referrals Follow up/Referrals: Provider,Referral, MD [Primary Care Provider] - See instructions Clinical Impressions Clinical Impression: Fall, Chronic schizophrenia, Hypothyroidism (acquired) Instructions Patient Instructions: How to Prevent Falls Discharge ED Provider: Fahad Warren Fall HPI General Chief Complaint: Fall Stated Complaint: fall Time Seen by Provider: 08/16/22 20:00 Mode of Arrival: EMS Source of Information: Patient, EMS and Medical Record Limitations: No Limitations Description of Symptoms (Recalled from ER Triage Doc. by RN): PT FOUND DOWN IN SHOWER ROOM AT [facility]. PT STATES SOMETHING SNAPS IN HIS BRAIN AND THEN HE DOES NOT KNOW IF HE IS COMING OR GOING PT DENIES ALL PAIN EXCEPT IN THE BACK OF HIS HEAD AND NECK. History of Present Illness HPI Narrative: reported possible fall at residential with head and neck pain - no other c/o MD complaint: fall Onset (ago): hour(s) Fall from: standing Fall witnessed: no Place fall occurred: other (residential ) Loss of consciousness: none Prolonged down time: no Symptoms prior to fall: none Context: tripped/slipped Location of injury: head and neck Associated symptoms (after fall): denies Related Data Home Medications Medication Instructions Recorded Confirmed acetylcysteine 500 mg capsule 600 mg PO BID anxiety 01/09/21 08/16/22 cholecalciferol (vitamin D3) 1,250 50,000 unit PO WEEKLY Supplement 01/09/21 08/16/22 mcg (50,000 unit) capsule duloxetine 60 mg capsule,delayed 60 mg PO DAILY mood 01/09/21 08/16/22 release famotidine 40 mg tablet 40 mg PO BID GERD 01/09/21 08/16/22 hydroxyzine pamoate 25 mg capsule 25 mg PO Q8H PRN mood 01/09/21 08/16/22 levothyroxine 25 mcg capsule 25 mcg PO DAILY hormone replacement 01/09/21 08/16/22 loratadine 10 mg capsule 10 mg PO DAILY Allergy symptoms 01/09/21 08/16/22 loxapine 10 mg breath activated 10 mg IH DAILY mood 01/09/21 08/16/22 powder inhaler lubiprostone 24 mcg capsule 24 mcg PO DAILY mood 01/09/21 08/16/22 melatonin 3 mg tablet 3 mg PO HS sleep 01/09/21 08/16/22 metoprolol succinate 25 mg 25 mg PO BID High blood pressure 01/09/21 08/16/22 tablet,extended release 24 hr multivitamin with folic acid 400 1 each PO DAILY Supplement 01/09/21 08/16/22 mcg tablet omeprazole 20 mg capsule,delayed 20 mg PO BID GERD 01/09/21 08/16/22 release pravastatin 40 mg tablet 20 mg PO HS Cholesterol 01/09/21 08/16/22 docusate sodium 100 mg capsule 100 mg PO DAILY Bowel 06/10/21 08/16/22 haloperidol 5 mg tablet 5 mg PO BID Anxiety 06/10/21 08/16/22 olanzapine 20 mg tablet 20 mg PO DAILY Anxiety 06/10/21 08/16/22 hydrocortisone 2
[2022-08-16 20:35] VITALS: BP 118/63; PULSE 87; RESP 16; TEMP 36.9; O2SAT 98
[2022-08-16 20:46] VITALS: BP 121/73; PULSE 79; RESP 16; TEMP 36.6; O2SAT 96
== END 2022-08-16 20:56 | disposition home or self-care (01) ==
PROVIDERS: Emergency Provider Emergency Medicine
DX: F20.9 Schizophrenia, unspecified; E03.9 Hypothyroidism, unspecified; W19.XXXA Unspecified fall, initial encounter; Y92.121 Bathroom in nursing home as the place of occurrence of the external cause; R51.9 Headache, unspecified; M54.2 Cervicalgia; Z79.899 Other long term (current) drug therapy; Z72.0 Tobacco use
CPT/HCPCS: 70450; 72125; 99284

== ENCOUNTER 2023-01-12 18:42 | Emergency (ER) | payer MEDICAID, SELFPAY ==
[2023-01-12 18:43] VITALS: BP 130/73; PULSE 70; RESP 18; TEMP 37.1; O2SAT 95; BMI 40.6
--- NOTE | 2023-01-12 18:50 | XR_ITS ---
PROCEDURE INFORMATION: Exam: XR Left Knee Exam date and time: 01/12/2023 6:52 PM Age: 37 years old Clinical indication: Pain; Knee; Left; Additional info: Fall TECHNIQUE: Imaging protocol: Radiologic exam of the left knee. Views: 4 or more views. COMPARISON: No relevant prior studies available. FINDINGS: Bones/joints: No acute fracture or malalignment. No significant knee joint effusion. Mild tricompartmental degenerative osteoarthrosis with peaking of the tibial spines and marginal osteophytosis. No significant joint space narrowing. Soft tissues: Unremarkable. IMPRESSION: 1. No evidence of acute osseous abnormality in the left knee. 2. Mild tricompartmental degenerative osteoarthrosis.
--- NOTE | 2023-01-12 18:59 | PC.NURSE ---
PT TO XR
--- NOTE | 2023-01-12 19:40 | CT_ITS ---
PROCEDURE INFORMATION: Exam: CT Left Lower Extremity Without Contrast, Knee Exam date and time: 01/12/2023 7:50 PM Age: 37 years old Clinical indication: Pain; Knee; Left; Additional info: Concernfor tibial plateau. Trauma with prox tib pa TECHNIQUE: Imaging protocol: CT of the left lower extremity without contrast was performed. Exam focused on the knee. 3D rendering (Not supervised by radiologist): MIP and/or 3D reconstructed images were created by the technologist. Radiation optimization: All CT scans at this facility use at least one of these dose optimization techniques: automated exposure control; mA and/or kV adjustment per patient size (includes targeted exams where dose is matched to clinical indication); or iterative reconstruction. REPORTING DATA: Count of CT and Cardiac NM exams in prior 12 months: This patient has received 3 known CTs and 0 known cardiac nuclear medicine studies in the 12 months prior to the current study. COMPARISON: CR XR KNEE LT 4V 01/12/2023 6:52 PM FINDINGS: Bones/joints: Trace left knee joint effusion. No evidence of lipohemarthrosis. No acute fracture or malalignment. 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 Mild tricompartmental degenerative osteoarthrosis with peaking of the tibial spines and marginal osteophytosis. Soft tissues: Soft tissue edema noted. IMPRESSION: 1. No evidence of acute osseous abnormality in the left knee. 2. Trace left knee joint effusion. 3. 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 4. Mild tricompartmental degenerative osteoarthrosis.
--- NOTE | 2023-01-12 19:46 | PC.NURSE ---
patient gone to CT at this time.
--- NOTE | 2023-01-12 19:53 | PC.NURSE ---
patient back from CT at this time.
--- NOTE | 2023-01-12 20:34 | HMH.EDGENADL ---
Discharge Plan Disposition Patient Disposition: Home, Self-Care Condition: Good Prescriptions Prescriptions: New ibuprofen 600 mg tablet 600 mg PO Q6H PRN (Reason: fever or pain) Qty: 20 0RF Rx Instructions: Please take the medicine with food. No Action lorazepam 1 mg tablet 1 mg PO TID Qty: 90 5RF Rx Instructions: 1 tablet @ lunchtime & 2 tablets @ bedtime hydroxyzine pamoate 25 mg capsule See Rx Instructions .ROUTE .COMPLEX Qty: 28 4RF Dose Instruction: ##GIVE 1 CAPSULE 3 TIMES A DAY NEEDED Rx Instructions: ##GIVE 1 CAPSULE 3 TIMES A DAY NEEDED pravastatin 40 MG tablet 20 mg PO HS famotidine 40 MG tablet 40 mg PO BID melatonin 3 MG tablet 3 mg PO HS omeprazole 20 MG capsule,delayed release(DR/EC) 20 mg PO BID metoprolol succinate 25 MG tablet extended release 24 hr 25 mg PO BID duloxetine 60 MG capsule,delayed release(DR/EC) 60 mg PO DAILY lubiprostone 24 MCG capsule 24 mcg PO DAILY cholecalciferol (vitamin D3) 1,250 MCG capsule 50,000 unit PO WEEKLY levothyroxine 25 MCG capsule 25 mcg PO DAILY loratadine 10 MG capsule 10 mg PO DAILY multivitamin with folic acid 1 EACH tablet 1 each PO DAILY loxapine 10 MG aerosol powdr breath activated 10 mg IH DAILY acetylcysteine 500 MG capsule 600 mg PO BID haloperidol 5 MG tablet 5 mg PO BID docusate sodium 100 MG capsule 100 mg PO DAILY olanzapine 20 MG tablet 20 mg PO DAILY hydrocortisone 30 GM cream with perineal applicator 30 gm TP BID Referrals Follow up/Referrals: Rolando Boston JR, MD [Physician] - 3 days Provider,MD Mary [Referring] - See instructions Activity Restrictions/Add. Instructions Additional Instructions/Restrictions: Follow up with Dr. Boston orthopedic and mike for pain Clinical Impressions Clinical Impression: Fall, Contusion of knee, left, Meniscus degeneration Discharge ED Provider: Francisco J Jones General Adult HPI <Francisco J Jones MD - Last Filed: 01/12/23 20:37> General Chief complaint: Fall Stated complaint: knee pain Time Seen by Provider: 01/12/23 19:00 Mode of Arrival: EMS Limitations: No Limitations Description of Symptoms (Recalled from ER Triage Doc. by RN): PT REPORT LEFT KNEE PAIN AFTER FALL History of Present Illness HPI narrative: This is a 37-year-old male with no relevant medical history presenting with left knee pain. Patient states that just a couple days prior to arrival, he slid off of his chair and landed on his left knee. Since that time, he has had difficulty and pain with bearing weight. No pain at rest. He was seen in the ER and given [place] bandage for home-going and is returning with continued significant pain. Patient states that pain is just distal to his kneecap on the left side and made worse by bearing weight. Not made worse by bending the knee. Denies locking up, instability, falls, any other trauma, or any other concerns. Related Data Home Medications Medication Instructions Recorded Confirmed acetylcysteine 500 mg capsule 600 mg PO BID anxiety 01/09/21 08/16/22 cholecalciferol (vitamin D3) 1,250 50,000 unit PO WEEKLY Supplement 01/09/21 08/16/22 mcg (50,000 unit) capsule duloxetine 60 mg capsule,delayed 60 mg PO DAILY mood 01/09/21 08/16/22 release famotidine 40 mg tablet 40 mg PO BID GERD 01/09/21 08/16/22 levothyroxine 25 mcg capsule 25 mcg PO DAILY hormone replacement 01/09/21 08/16/22 loratadine 10 mg capsule 10 mg PO DAILY Allergy symptoms 01/09/21 08/16/22 loxapine 10 mg breath activated 10 mg IH DAILY mood 01/09/21 08/16/22 powder inhaler lubiprostone 24 mcg capsule 24 mcg PO DAILY mood 01/09/21 08/16/22 melatonin 3 mg tablet 3 mg PO HS sleep 01/09/21 08/16/22 metoprolol succinate 25 mg 25 mg PO BID High blood pressure 01/09/21 08/16/22 tablet,extended release 24 hr multivitamin with folic acid 400 1 each
[2023-01-12 21:03] VITALS: BP 135/65; PULSE 71; RESP 17; TEMP 36.8; O2SAT 98
--- NOTE | 2023-01-12 21:05 | PC.NURSE ---
[facility] notified patient is ready. Waiting for patient's ride
== END 2023-01-12 21:11 | disposition home or self-care (01) ==
PROVIDERS: Emergency Provider Emergency Medicine; PCP Emergency Medicine
DX: S80.02XA Contusion of left knee, initial encounter (principal); M23.301 Other meniscus derangements, unspecified lateral meniscus, left knee; F17.210 Nicotine dependence, cigarettes, uncomplicated; W07.XXXA Fall from chair, initial encounter
CPT/HCPCS: 73564; 73700; 99284

== ENCOUNTER 2023-04-03 16:45 | Emergency (ER) | payer MEDICAID, SELFPAY ==
--- NOTE | 2023-04-03 16:48 | ECG_ITS ---
APPROVED REPORT Exam: Resting ECG HR:74 bpm ECG Measurements Heart Rate 74 AXES IA 166 P 54 QRSd 116 QRS 43 QT 389 T 72 QTc 417 Conclusion SINUS RHYTHM Normal ECG UNCONFIRMED REPORT Electronically signed by : Jewel Douglas MD 04/04/2023 08:03:24
[2023-04-03 17:01] LABS: POC Glucose,Bedside 152 (70-110)
[2023-04-03 17:02] VITALS: BP 116/75; PULSE 78; RESP 15; RESP 17; TEMP 36.9; O2SAT 97; O2SAT 98; BMI 40.6
--- NOTE | 2023-04-03 17:02 | PC.NURSE ---
pt given a pillow for comfort
--- NOTE | 2023-04-03 17:04 | XR_ITS ---
PROCEDURE INFORMATION: Exam: XR Chest Exam date and time: 04/03/2023 5:51 PM Age: 38 years old Clinical indication: Pain; Chest pressure; Additional info: C. P. TECHNIQUE: Imaging protocol: Radiologic exam of the chest. Views: 1 view. COMPARISON: CT CERVICAL SPINE WO CON 08/16/2022 7:11 PM FINDINGS: Lungs: Unremarkable. No consolidation. Pleural spaces: Unremarkable. No pleural effusion. No pneumothorax. Heart/Mediastinum: Unremarkable. No cardiomegaly. Bones/joints: Unremarkable. IMPRESSION: No acute findings.
[2023-04-03 17:30] VITALS: BP 125/70; PULSE 73; O2SAT 95
[2023-04-03 17:36] LABS: Basophils % 0.5 % (0.1-2.0); Eosinophils # 0.2 K/mm3 (0.0-0.4); Eosinophils % 3.2 % (0.1-12.0); Hematocrit 40.8 % (42.0-52.0); Hemoglobin 13.8 g/dL (14.1-18.0); Lymphocytes # 2.9 K/mm3 (0.7-4.5); Lymphocytes % 41.2 % (10-50); Mean Corpuscular HGB Conc 33.9 g/dL (31.8-35.4); Mean Corpuscular Hemoglobin 27.1 pg (27.0-31.2); Mean Platelet Volume 8.3 fl (7.4-10.4); Monocytes # 0.5 K/mm3 (0.1-1.0); Neutrophils # 3.4 K/mm3 (1.8-7.8); Neutrophils % 48.1 % (37.0-80.0); Platelet Count 222 K/mm3 (142-424); Red Cell Distribution Width 13.5 % (11.5-17.5); White Blood Count 7.1 K/mm3 (4.8-10.8)
[2023-04-03 17:53] LABS: Alanine Aminotransferase 31 U/L (12-78); Albumin/Globulin Ratio 1.5 (1.1-1.8); Alkaline Phosphatase 113 U/L (38-126); Anion Gap 15.4 mEq/L (5-15); Aspartate Amino Transferase 31 U/L (17-59); Bilirubin,Total 0.2 mg/dl (0.2-1.3); Blood Urea Nitrogen 3 mg/dl (9-20); Calcium 7.9 mg/dl (8.4-10.2); Carbon Dioxide 22 mmol/L (22.0-30.0); Chloride 88 mmol/L (98-107); Creatinine Clearance Estimated 386 mL/min (50-200); Estimated Glomerular Filt Rate 186 ml/min (>60); GFR (African American) 225 ML/MIN (>60); Globulin 2.6 g/dL (1.3-3.2); Glucose 180 mg/dl (74-100); Potassium 3.4 mmoL/L (3.5-5.1); Sodium 122 mmol/L (136-145); Total Protein,Serum 6.6 g/dl (6.3-8.2)
[2023-04-03 17:59] LABS: D-Dimer 0.41 ug/mL (0.0-0.5)
[2023-04-03 18:00] VITALS: BP 124/73; PULSE 72; RESP 17; O2SAT 96
[2023-04-03 18:05] LABS: NT Pro Brain Natriuretic Pep. 51.4 pg/mL (0-125)
[2023-04-03 18:09] LABS: Troponin I < 0.01 ng/ml (0.00-0.034)
--- NOTE | 2023-04-03 18:14 | PC.NURSE ---
er at bedside
--- NOTE | 2023-04-03 18:20 | PC.NURSE ---
called [facility] to ask about facility providing ride back there since patient is being discharged.
[2023-04-03 18:47] VITALS: BP 128/69; PULSE 75; RESP 18; TEMP 36.8; O2SAT 96
--- NOTE | 2023-04-03 20:54 | HMH.EDGENADL ---
Discharge Plan Disposition Patient Disposition: Home, Self-Care Condition: Good Prescriptions Prescriptions: No Action lorazepam 1 mg tablet 1 mg PO TID Qty: 90 5RF Rx Instructions: 1 tablet @ lunchtime & 2 tablets @ bedtime hydroxyzine pamoate 25 mg capsule See Rx Instructions .ROUTE .COMPLEX Qty: 28 4RF Dose Instruction: ##GIVE 1 CAPSULE 3 TIMES A DAY NEEDED Rx Instructions: ##GIVE 1 CAPSULE 3 TIMES A DAY NEEDED pravastatin 40 MG tablet 20 mg PO HS famotidine 40 MG tablet 40 mg PO BID melatonin 3 MG tablet 3 mg PO HS omeprazole 20 MG capsule,delayed release(DR/EC) 20 mg PO BID metoprolol succinate 25 MG tablet extended release 24 hr 25 mg PO BID duloxetine 60 MG capsule,delayed release(DR/EC) 60 mg PO DAILY lubiprostone 24 MCG capsule 24 mcg PO DAILY cholecalciferol (vitamin D3) 1,250 MCG capsule 50,000 unit PO WEEKLY levothyroxine 25 MCG capsule 25 mcg PO DAILY loratadine 10 MG capsule 10 mg PO DAILY multivitamin with folic acid 1 EACH tablet 1 each PO DAILY loxapine 10 MG aerosol powdr breath activated 10 mg IH DAILY acetylcysteine 500 MG capsule 600 mg PO BID haloperidol 5 MG tablet 5 mg PO BID docusate sodium 100 MG capsule 100 mg PO DAILY olanzapine 20 MG tablet 20 mg PO DAILY hydrocortisone 30 GM cream with perineal applicator 30 gm TP BID ibuprofen 600 mg tablet 600 mg PO Q6H PRN (Reason: fever or pain) Qty: 20 0RF Rx Instructions: Please take the medicine with food. Referrals Follow up/Referrals: Fahad Warren MD [Primary Care Provider] - See instructions Clinical Impressions Clinical Impression: Chest pain, precordial Discharge ED Provider: Thierry Parrish Adult [facility] General Chief complaint: Anxiety Stated complaint: CP Time Seen by Provider: 04/03/23 17:02 Mode of Arrival: EMS Source of Information: Patient Limitations: No Limitations Description of Symptoms (Recalled from ER Triage Doc. by RN): pt to ed c/o anxiety. pt states he felt like he was having an anxiety attcack so he took a vistaril. pt states he feels weak when he stands but feels jittery at rest. pt denies any pain. [facility] staff states these symptoms started after pt drank an enery drink but pt denies drinking one. History of Present Illness HPI narrative: This is a very pleasant 38-year-old gentleman who presents with feeling weak all over and jittery. States he taken Vistaril and that started. He had told someone he had chest pain and when I asked him this he says yes but unable to further explain. Related Data Home Medications Medication Instructions Recorded Confirmed acetylcysteine 500 mg capsule 600 mg PO BID anxiety 01/09/21 08/16/22 cholecalciferol (vitamin D3) 1,250 50,000 unit PO WEEKLY Supplement 01/09/21 08/16/22 mcg (50,000 unit) capsule duloxetine 60 mg capsule,delayed 60 mg PO DAILY mood 01/09/21 08/16/22 release famotidine 40 mg tablet 40 mg PO BID GERD 01/09/21 08/16/22 levothyroxine 25 mcg capsule 25 mcg PO DAILY hormone replacement 01/09/21 08/16/22 loratadine 10 mg capsule 10 mg PO DAILY Allergy symptoms 01/09/21 08/16/22 loxapine 10 mg breath activated 10 mg IH DAILY mood 01/09/21 08/16/22 powder inhaler lubiprostone 24 mcg capsule 24 mcg PO DAILY mood 01/09/21 08/16/22 melatonin 3 mg tablet 3 mg PO HS sleep 01/09/21 08/16/22 metoprolol succinate 25 mg 25 mg PO BID High blood pressure 01/09/21 08/16/22 tablet,extended release 24 hr multivitamin with folic acid 400 1 each PO DAILY Supplement 01/09/21 08/16/22 mcg tablet omeprazole 20 mg capsule,delayed 20 mg PO BID GERD 01/09/21 08/16/22 release pravastatin 40 mg tablet 20 mg PO HS Cholesterol 01/09/21 08/16/22 docusate sodium 100 mg capsule 100 mg PO DAILY Bowel 06/10/21 08/16/22 haloperidol 5 mg tablet 5 mg PO BID Anxiety 06/10/21 08/16/22 olanzapine 20 mg
== END 2023-04-03 18:48 | disposition home or self-care (01) ==
PROVIDERS: Emergency Provider Emergency Medicine; PCP Emergency Medicine
DX: R07.89 Other chest pain (principal); R53.1 Weakness; F41.9 Anxiety disorder, unspecified; F17.210 Nicotine dependence, cigarettes, uncomplicated
CPT/HCPCS: 36415; 71045; 80053; 82962; 83880; 84484; 85025; 85378; 93005; 99284; 99285

== ENCOUNTER 2023-06-05 20:19 | Emergency (ER) | payer MEDICAID, SELFPAY ==
[2023-06-05 20:21] VITALS: BP 151/93; PULSE 81; RESP 16; TEMP 36.6; O2SAT 96; BMI 40.6
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
[2023-06-05 20:49] VITALS: BP 135/93; PULSE 76; RESP 15; TEMP 36.7; O2SAT 98
== END 2023-06-05 20:51 ==
PROVIDERS: Emergency Provider Student in an Organized Health Care Education/Training Program
DX: Z02.89 Encounter for other administrative examinations (principal); F17.210 Nicotine dependence, cigarettes, uncomplicated
CPT/HCPCS: 99281